=== PATIENT | female | born 1975 | race Caucasian/White ===

== ENCOUNTER 2019-01-14 05:59 | Day surgery (SDC) | payer OTHER ==
[~2019-01-14] VITALS: Ht 167.6 cm; Wt 78.8 kg
[2019-01-14] VITALS (16 sets, daily range): BP systolic 104–138; BP diastolic 58–72; PULSE 71–96; RESP 11–22; Ht 167.6 cm; Wt 78.8 kg
[2019-01-14] MEDS ORDERED: BUPIVACAINE 0.25% (MPF) 30 ML INJ ONE (07:21)
--- NOTE | 2019-01-14 07:43 | PREAC ---
Date/Time of Note Date/Time of Note DATE: 01/14/19 TIME: 07:41 Anesthesia Eval and Record Evaluation Time Pre-Procedure Interview DATE: 01/14/19 TIME: 07:21 Age 43 Sex female NPO: 8 hrs Preoperative diagnosis Cholelithiasis Planned procedure Laparoscopic Cholecystectomy Past Medical History Past Medical History: Includes Pulm: Smoking Hx Surgery & Anesthesia Issues No known issue Meds Anticoagulation: No Beta Elyssa within 24 hr: No Reason Beta Elyssa not given: Pt. not on B-Elyssa No Active Prescriptions or Reported Meds Meds reviewed: Yes Allergies Coded Allergies: No Known Allergy (Unverified , 01/14/19) Allergies Reviewed: Yes Labs/Studies Labs Reviewed: Reviewed by anesthesiologist test: Negative Studies: ECG (n/a), CXR (n/a) Pre-procedure Exam Last vitals Vital Signs Date Temp Pulse Resp B/P (MAP) Pulse Ox O2 O2 Flow FiO2 Time Delivery Rate 01/14/19 97.7 71 18 105/58 98 Room Air 06:45 (74) Airway: Adequate mouth opening, Adequate thyromental dist Mallampati: Mallampati II Teeth: Normal Lung: Normal Heart: Normal ASA Physical Status ASA physical status: 2 Emergency: None Planned Anesthetic General/MAC: ETT Nerve block: TAP (bilateral) Planned Pain Management Single shot nerve block, Parenteral pain med Pre-operative Attestations Prior to commencing anesthesia and surgery, the patient was re-evaluated, there was verification of: *The patient's identity *The results of appropriate recent lab work and preoperative vital signs *The above evaluation not changing prior to induction *Anesthetic plan, risk benefits, alternative and complications discussed with patient/family; questions answered; patient/family understands, accepts and wishes to proceed. KLAUS NAVARRETE MD Jan 14, 2019 07:43
[2019-01-14] MEDS ORDERED: CEFAZOLIN 1 GM INJ ONE (07:53)
[2019-01-14] MEDS ORDERED: ROCURONIUM 50 MG INJ ONE (07:53)
[2019-01-14] MEDS ORDERED: PROPOFOL 20 ML ONE (07:53)
[2019-01-14] MEDS ORDERED: FENTAnyl 50 MCG/ML VIAL ONE (07:54)
[2019-01-14] MEDS ORDERED: MIDAZOLAM 1 MG/ML 2 ML INJ ONE (07:54)
[2019-01-14] MEDS ORDERED: ROPIVACAINE 0.5 % 30 ML VIAL ONE (07:55)
[2019-01-14] MEDS ORDERED: EPHEDrine SULFATE 50 MG/5 ML SYG IV PRN (08:00)
[2019-01-14] MEDS ORDERED: FENTAnyl 50 MCG/ML VIAL IV PRN ×3 (08:00)
[2019-01-14] MEDS ORDERED: OXYCODONE/ACETAMINOPHEN (5/325) TAB PO PRN (08:00)
[2019-01-14] MEDS ORDERED: HYDROmorphONE 1 MG/5 ML IV SYRINGE IV PRN ×3 (08:00)
[2019-01-14] MEDS ORDERED: DIPHENHYDRAMINE 50 MG INJ IV PRN (08:00)
[2019-01-14] MEDS ORDERED: MEPERIDINE 25 MG INJ IV PRN (08:00)
[2019-01-14] MEDS ORDERED: LABETALOL HCL 20MG INJ IV PRN (08:00)
[2019-01-14] MEDS ORDERED: METOCLOPRAMIDE 10 MG INJ IV PRN (08:00)
[2019-01-14] MEDS ORDERED: ONDANSETRON 4 MG INJ IV PRN (08:00)
[2019-01-14] MEDS ORDERED: METOCLOPRAMIDE 10 MG INJ ONE (08:23)
[2019-01-14] MEDS ORDERED: KETOROLAC 30 MG INJ ONE (08:23)
[2019-01-14] MEDS ORDERED: DEXAMETHASONE 4 MG/ML 5 ML INJ ONE (08:23)
[2019-01-14] MEDS ORDERED: ONDANSETRON 4 MG INJ ONE (08:23)
--- NOTE | 2019-01-14 08:40 | OPR ---
Date/Time of Note Date/Time of Note DATE: 01/14/19 TIME: 08:37 Operative Report Procedure Date: Jan 14, 2019 Preoperative Diagnosis symptomatic gallstones Postoperative Diagnosis same Operation/Procedure Performed laparoscopic cholecystectomy Surgeon see signature line Sap Abap Programmer none Anesthesia Type: general Estimated Blood Loss: 0 - 10 ml's Transfusion none Specimen gallbladder Grafts/Implants none Complications none Pt Condition Post Procedure: stable Indications This is a 43-year-old female with some tender gallstones. She required surgical excision of her gallbladder. Risks alternatives benefits and percent were discussed with the patient. Patient expresses understanding and consents to the operation. Procedure Description Patient is taken to the OR and prepped and draped in usual sterile fashion. Surgical time was performed. IV antibiotics were given. Infraumbilical transverse incision was made with a 15 blade. Dissection with cautery was carried onto the fascia. The fascia was grasped with Randall's and divided with curved Mustafa scissors. 0 Vicryl U stitch was placed into the fascia. Fletcher trocar was introduced. Pneumoperitoneum is established. Midepigastric 12 mm optical trochars placed under direct position. Right upper quadrant upper flank 5 mm optical trochars were placed under direct visualization. Upon initial inspection there are some adhesions to the gallbladder. The gallbladder is grasped the fundus and retracted in a lateral cephalad direction. [place] graspers were used to dissect out the cystic duct and cystic artery. The critical view was established. The cystic duct is divided with the clips proximally clipped distal and the division was performed laparoscopic scissors. Cystic artery was divided 3 clips proximally clipped distal and the division was performed laparoscopic scissors. The gallbladder was taken of the gallbladder bed. Good hemostasis established in the gallbladder bed. The gallbladder is retrieved using Endo Catch bag. Minimal suction irrigation is used. All ports were removed under direct visualization. 0 Vicryl sutures tied down. Skin was closed using skin ifeanyi. A tap block was provided by the anesthesiologist at the beginning the case. Dry dressings were applied. Deyanira NORIEGA Jan 14, 2019 08:40
--- NOTE | 2019-01-14 08:43 | PAC ---
Date/Time of Note Date/Time of Note DATE: 01/14/19 TIME: 08:42 Post-Anesthesia Notes Post-Anesthesia Note Last documented vital signs Vital Signs Date Temp Pulse Resp B/P (MAP) Pulse Ox O2 O2 Flow FiO2 Time Delivery Rate 01/14/19 98.0 71 18 105/58 98 Room Air 08:55 (74) Activity: WNL Respiratory function: WNL Cardiovascular function: WNL Mental status: Baseline Pain reasonably controlled: Yes Hydration appropriate: Yes Nausea/Vomiting absent: Yes KLASU NAVARRTEE MD Jan 14, 2019 08:43
[2019-01-14] MEDS ORDERED: HYDROCODONE/APAP (5/325) TAB PO ONE (09:00)
== END 2019-01-14 10:30 | disposition home or self-care (01) ==
LOC: SDS 05:59
PROVIDERS: ATTEND Surgery
DX: K80.10 Calculus of gallbladder with chronic cholecystitis without obstruction (principal)
CPT/HCPCS: 47562; 88304; J0690; J1100; J1170; J1885; J2250; J2405; J2765; J2795; J3010; Z7512; Z7610